=== PATIENT | female | born 2005 | race Caucasian/White ===

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

== ENCOUNTER → 2025-07-23 | Outpatient (CLI) | payer BC ==
[2025-07-23 11:51] LABS: Hematocrit 42.4 % (36.0-46.0); Hemoglobin 14.5 g/dL (12.2-16.2); Mean Corpuscular Hemoglobin 31.6 pg (28.0-32.0); Mean Corpuscular Volume 92.4 fL (80.0-100.0); Nucleated Red Blood Cells % 0.0 %
[2025-07-25 04:06] LABS: Chlamydia Trachomatis, NAA Negative (Negative); Neisseria gonorrhoeae, NAA Negative (Negative)
== END | disposition home or self-care (01) ==
LOC: LAB 11:19
PROVIDERS: ATTEND Obstetrics & Gynecology
DX: Z34.80 Encounter for supervision of other normal pregnancy, unspecified trimester (principal); Z72.51 High risk heterosexual behavior; Z3A.00 Weeks of gestation of pregnancy not specified
CPT/HCPCS: 36415; 83036; 85025; 86703; 86780; 86850; 86900; 86901; 87086; 87340

== ENCOUNTER 2025-07-30 18:22 | Inpatient (IN) | payer BC, MEDICAID ==
[~2025-07-30] VITALS: Ht 160 cm; Wt 73.0 kg
[2025-07-30] MEDS ORDERED: BUTORPHANOL TARTRATE 2 MG/1 ML VIAL IV PRN ×2 (18:45)
[2025-07-30] MEDS ORDERED: LIDOCAINE 2%HCL (LOCAL ANESTH.) INJ 20ML MDV IJ PRN (18:45)
[2025-07-30 19:13] LABS: Hematocrit 39.2 % (36.0-46.0); Hemoglobin 13.8 g/dL (12.2-16.2); Mean Corpuscular Hemoglobin 32.3 pg (28.0-32.0); Mean Corpuscular Volume 92.0 fL (80.0-100.0); Nucleated Red Blood Cells % 0.0 %
[2025-07-30 19:28] LABS: INR 0.93 (0.9-1.15); Partial Thromboplastin Time 29.7 SEC (24.5-34.5); Prothrombin Time 9.9 sec (9.3-11.8)
[2025-07-30] MEDS: NALOXONE HCL 0.4 MG/ML VIAL IV ONE (19:30)
[2025-07-30 19:37] LABS: Alanine Aminotransferase 21 U/L (7-40); Albumin 3.8 g/dL (3.2-4.8); Anion Gap 12 (5-15); BUN/Creatinine Ratio 15.7 (10.0-20.0); Bilirubin, Total 0.4 mg/dL (0.2-1.0); Calcium 9.3 mg/dL (8.7-10.4); Carbon Dioxide 21 mmol/L (20-31); Chloride 106 mmol/L (98-107); Glucose 76 mg/dL (74-106); Potassium 3.7 mmol/L (3.5-5.1); Sodium 139 mmol/L (136-145); Total Protein 6.8 g/dL (5.7-8.2)
[2025-07-30 19:38] LABS: Alkaline Phosphatase 177 U/L (46-116); Blood Urea Nitrogen 8 mg/dL (9-23)
[2025-07-30 19:38] LABS: Urine Protein, UAD Negative (Negative)
[2025-07-30 19:45] LABS: Amphetamine Screen, Urine Neg (NEGATIVE); Barbiturate Scree,Urine Neg (NEGATIVE); Benzodiazephine Screen, Urine Neg (NEGATIVE); Cannabinoid Screen, Urine Neg (NEGATIVE); Cocaine Screen, Urine Neg (NEGATIVE); Opiate Scree,Urine Neg (NEGATIVE); Phencyclidine Screen, Urine Neg (NEGATIVE)
[2025-07-30] MEDS: LACTATED RINGER'S 1,000 ML IV SCH (19:50)
[2025-07-30] MEDS: LACTATED RINGER'S 1,000 ML IV ONE (19:50)
[2025-07-30] MEDS: PENICILLIN G POT 5MIL/D5 50ML 50 ML IV ONE (19:50)
[2025-07-30] MEDS: WITCH HAZEL-GLYCERIN PAD TOP PRN (20:15)
[2025-07-30] MEDS: PHISODERM TOP SOLN 240ML BTL TOP PRN (20:15)
[2025-07-30] MEDS: DERMOPLAST 60ML BOTTLE TOP PRN (20:15)
[2025-07-30] MEDS: ROPIVACAINE HCL 100 ML ONE (20:17)
--- NOTE | 2025-07-30 20:23 | DVHHP2 ---
OB CC & HPI Date Date of Admission: Jul 30, 2025 Patient Identification: : 3 Para: 1 EDC: Aug 08, 2025 EGA: 38w5d Chief Complaints: Reason for admission: group B positive strep, rupture of membranes History of Present Complaints Carmen Werner is a 20 yo with IUP at 38w5d presenting for R/O SROM and UCs Patient states she felt water leaking at 1700 today, clear fluid. She is now rashida every 2 minutes and is wanting an epidural. Denies vaginal bleeding and states positive movement. GBS is positive. Denies headache, blurry vision, or epigastric pain. OB Hx: x1 Past Medical History Cardiac: No pertinent Hx Pulmonary: No pertinent Hx Central Nervous System: No pertinent Hx GI: No pertinent Hx Hemotology/Oncology: No pertinent Hx Hepatobiliary: No pertinent Hx Psychiatric: No pertinent Hx Musculoskeletal: No pertinent Hx Rheumotologic: No pertinent Hx Infectious Disease: No peritnent Hx ENT: No pertinent Hx Renal/: No pertinent Hx Endocrine: No pertinent Hx Dermatology: No pertinent Hx Past Surgical History: No pertinent Hx OB History OB History Care: Good Care Ultrasounds: Normal mid trimester US Obstetrical Complications: None Medical Complications: None Allergies: Coded Allergies: NO KNOWN ALLERGIES (Unverified , 03/10/24) Home Meds No Active Prescriptions or Reported Meds Current Medications Current Medications Medications (Trade) Dose Ordered Sig/Sudhir Route PRN Reason Start Time Stop Time Status Last Admin Lactated Ringer's 1,000 ml @ 125 mls/hr Q8H IV 07/30/25 18:45 07/30/25 19:50 Penicillin G Potassium 0198931 units/Dextrose 50 ml @ 100 mls/hr Q4H IV 07/30/25 23:45 Witch Paola (Tucks) 1 pad PRN PRN TOP PERINEAL AREA DISCOMFORT 07/30/25 18:45 Sodium Lauryl Sulfate (Phisoderm) 240 ml PRN PRN TOP PERINEAL AREA DISCOMFORT 07/30/25 18:45 Benzocaine (Dermoplast) 1 applic PRN PRN TOP PERINEAL AREA DISCOMFORT 07/30/25 18:45 Butorphanol Tartrate (Stadol Injection) 1 mg Q4HPRN PRN IV MODERATE PAIN (4-6 PAIN SCALE) 07/30/25 18:45 Butorphanol Tartrate (Stadol Injection) 2 mg Q4HPRN PRN IV SEVERE PAIN (7-10 PAIN SCALE) 07/30/25 18:45 Lidocaine HCl (Xylocaine) 20 ml ONCE PRN IJ PERINEAL AREA DISCOMFORT 07/30/25 18:45 Family & Social History Family/Social History Past Family/Social History: Fm Hx: denies Social Hx: -denies alcohol, tobacco, or other drug use -denies hx of STIs -feels safe at home RPR/VDRL: Negative GBS Status: Positive HBsAG: Negative Review of Systems Constitutional: No symptom reported Ears, Nose, & Throat: No symptom reported Eyes: No symptom reported Pulmonary/Respiratory: No symptom reported Cardiovascular: No symptom reported Gastrointestinal: No symptom reported Genitourinary: No symptom reported Musculoskeletal: No symptom reported Skin: No symptom reported Psychiatric: No symptom reported Endocrine: No symptom reported Hemotologic/Lymphatic: No symptom reported OB Admission Exam Physical Exam Vitals: VSS. See CPN HEENT: TMs Normal, Nasal Mucosa Normal, Eyes non-injected, Oropharynx Normal, PERRLA, Moist Membranes Heart: Rhythm Normal Lungs: Clear Abdomen: Gravid (EFW: 3500g by [place]) Extremities: Normal Reflexes: Normal Cervical Dilatation: 3cm Station: -2 Membranes: Ruptured Amniotic Fluid: Clear Heart Rate: 140's Accelerations: Accelerations Present Decelerations: No Decelerations Short Term Variability: Present Md Ophthalmologist Variability: Average (6-25) Contractions on Admission: < 5 Minutes Apart Date/Time Contractions Began: 07/30 @ 1700 Intensity: Moderate OB Plan Plan Admitting Diagnosis: SROM/Labor Plan: Expectant Management Other Plan: ASSESSMENT: -20 yo , IUP at 38w5d -SROM and in labor -Category 1 Tracing -GBS positive PLAN: -Plan of care and plan discussed with Patient -Process, Risks, benefits, of available management options discussed, including starting with expectant management, augmentation if indicated, Internal monitoring of UCs & FHT, AROM, amnioinfusion etc only when indicated. Patient agrees to starting with expectant management at this time, as she desires as natural a as possible; other interventions as indicated. Informed Consent obtained -Consent for possible blood transfusion obtained. -All questions answered. -Admit to Place for Labor -Routine L&D Admission orders -EFM per policy. OK to be intermittent per protocol, if FHR tracing is reactive and category 1 -Encourage ambulation and/exercises / frequent position change to facilitate labor & descent -Supportive care as needed. Patient can get epidural when desired -Start penicillin per protocol for GBS prophylaxis -Re-assess cervix in 4-6 hours, or sooner as indicated, to evaluate need for augmentation -Anticipate normal spontaneous vaginal delivery Visit Coding OBGYN Date of Service: Jul 30, 2025 Billing Provider: TIO CAGE CNM GAS CONTROLLER Common Visit Codes: [id number] OBS CARE (HIGH) GAS CONTROLLER Procedure Codes: 76527-37- NON-STRESS TEST TIO CAGE CNM Jul 30, 2025 20:23
[2025-07-30] MEDS: LACT. RINGERS/OXYTOCIN 20UNITS 500 ML IV ONE ×2 (21:26)
--- NOTE | 2025-07-30 21:31 | LDN2 ---
Labor and Delivery Note Date 07/30/25 Age 20 3 Para 1->2 EDC 08/08/2025 EGA 38w5d Diagnosis Vaginal Delivery: VTX Vacuum Assisted: No Placenta: Spontaneous Sex: Male Weight 8#0 Apgars 07/13 Nuchal Cord Transected: No Amniotic Fluid: Clear Anesthesia epidural Episiotomy: No Extension: No Repaired with N/A. perineum intact EBL 50mL in drape Labs Laboratory Tests 07/23/25 11:37: Hepatitis B Surface Antigen Negative, HIV (1&2) Antibody Negative Blood Bank 07/30/25 18:56: Blood Type A POSITIVE Comments/Significant Med Kyle At 210 this 20yo now delivered a viable male "Barry" by w/ APGARS 07/13. HIRO. Infant placed immediately skin to skin on pts chest. Cord clamped and cut by FOB after 3 minutes. Cord blood collected per protocol. Intact 3-vessel cord and intact placenta ([place]), delivered spontaneously Pitocin IV bolus started. Placenta shown to patient and sent to pathology. Patient had epidural and pain was well managed Cervix inspected and intact. Perineum intact. Rectal mucosa and sphincter intact. Fundus at U, firm, midline, and scant lochia. QBL 50ml. VSS. Count correct x2. Patient to care and baby to couplet care, both stable. Visit Coding OBGYN Date of Service: Jul 30, 2025 Billing Provider: TIO CAGE CNM ALUMINUM BOAT ASSEMBLY SUPERVISOR Common Visit Codes: [id number] INP/OBS CARE(HIGH) ALUMINUM BOAT ASSEMBLY SUPERVISOR Procedure Codes: 26301-[id number] DELIVERY ONLY TIO CAGE CNM Jul 30, 2025 21:31
[2025-07-30] MEDS ORDERED: IBUPROFEN 600 MG TAB PO PRN (21:45)
[2025-07-30] MEDS ORDERED: ONDANSETRON ODT 4 MG TAB PO PRN (21:45)
[2025-07-30] MEDS: DOCUSATE SOD 100 MG CAP PO SCH (22:00)
[2025-07-30] MEDS ORDERED: PENICILLIN G POTASSIUM 2,500,000 UNITS in D5W 5% 50 ML IV SCH (23:45)
[2025-07-31] VITALS (7 sets, daily range): BP systolic 112–122; BP diastolic 54–64; PULSE 96–109; RESP 17–18; TEMP 97.7–98.9; O2SAT 95–99
[2025-07-31] MEDS: ACETAMINOPHEN 325 MG TAB PO PRN (06:36)
--- NOTE | 2025-07-31 06:39 | DVHPN2 ---
Progress Note Date Seen: Jul 31, 2025 Subjective Carmen feels much better than she expected to. She has been walking independently around room and is feeling like she is ready to go home SUBJECTIVE -Lochia minimal -Tolerating regular diet well. -Pain relieved with oral medication PRN -Ambulating and voiding well w/o feeling lightheaded or dizzy. -Passing flatus but no BM yet -Breast feeding. -Desires and requests to be discharged home today (07/31) vital signs Vital Sign Date Time Temp Pulse Resp B/P (MAP) Pulse Ox O2 Delivery O2 Flow Rate FiO2 07/31/25 03:21 98.9 109 17 112/64 (80) 97 98.9 07/30/25 23:11 Room Air Total Intake and Output 07/30/25 07/30/25 07/31/25 15:00 23:00 07:00 Output Total 1150 ml Balance -1150 ml medications Current Medications Medications Dose Ordered Sig/Sudhir Route Start Time Stop Time Status Last Admin Dose Admin Penicillin G Potassium 3732773 units/Dextrose 50 ml @ 100 mls/hr Q4H IV 07/30/25 23:45 Cancel Witch Paola 1 pad PRN PRN TOP 07/30/25 18:45 07/30/25 20:15 1 PAD Sodium Lauryl Sulfate 240 ml PRN PRN TOP 07/30/25 18:45 07/30/25 20:15 240 ML Benzocaine 1 applic PRN PRN TOP 07/30/25 18:45 07/30/25 20:15 1 APPLIC Butorphanol Tartrate 1 mg Q4HPRN PRN IV 07/30/25 18:45 Cancel Butorphanol Tartrate 2 mg Q4HPRN PRN IV 07/30/25 18:45 Cancel Lidocaine HCl 20 ml ONCE PRN IJ 07/30/25 18:45 Cancel Ibuprofen 600 mg Q6HP PRN PO 07/30/25 21:45 Acetaminophen 650 mg Q4HP PRN PO 07/30/25 21:45 Ondansetron HCl 4 mg Q4HPRN PRN PO 07/30/25 21:45 Docusate Sodium 200 mg HS PO 07/30/25 22:00 laboratory and microbiology Laboratory Tests 07/30/25 18:56 Test 07/30/25 18:56 Range/Units Serum Glucose 76 74-106 mg/dL Objective OBJECTIVE -A&O x4. No apparent distress. Affect appropriate -Afebrile, VSS -Chest: heart and lung sounds normal. -Breasts: Nipples intact w/o cracks or soreness -Abdomen: normal BS, soft, non-tender, no rebound or guarding, fundus firm @ U- 1, lochia minimal -Perineum: no edema, or erythema -Extremities: no edema or tenderness Problems(with codes): (1) (normal spontaneous vaginal delivery) (2) Intact perineum Assessment/Plan ASSESSMENT -20 yo now ppd #1 s/p doing well. -Blood Type: A+ -Breast feeding -Rubella Immune PLAN -Continue pain management with oral medications as previously ordered -Increase fluid intake and fiber in diet to promote regular bowel movements, Laxative PRN. Discussed taking stool softeners regularly for the first 2 weeks PP in order to prevent constipation and maintain ease of bowel movements. -Encouraged patient to continue taking vitamin and iron -Educated patient on self care and warning signs of PPH, PPD, and pre-eclampsia. Answered all pt questions and concerns -Continue routine care. Discussed uncertainty of baby being discharged in the night hours. If baby is given the OK to discharge, patient is OK to d/c home tonight. Otherwise, discharge tomorrow morning Plan discussed with: Patient, Spouse Visit Coding OBGYN Date of Service: Jul 31, 2025 Billing Provider: TIO CAGE CNM GLOVE PRINTER Common Visit Codes: [id number] INP/OBS CARE(HIGH) TIO CAGE CNM Jul 31, 2025 06:39
[2025-07-31] MEDS ORDERED: DOCU-94 PO (06:40)
[2025-07-31] MEDS ORDERED: IBU600T PO (06:40)
[2025-07-31] MEDS ORDERED: PREN-96 PO (06:40)
--- NOTE | 2025-07-31 07:01 | DVHDS2 ---
Obstetrics Discharge Summary Obstetrics Discharge Summary Date of Admission: Jul 30, 2025 Date of Discharge: Jul 31, 2025 Reason For Admission: Onset of Labor Intrapartum Procedures: Spontaneous vaginal deliv Discharge Diagnosis: Term -Delivered Discharge Information: Activity (Unrestricted. Advance as tolerated. Balance activities with rest periods. No heavy lifting, pushing or straining. Pelvic rest x 6 weeks), Diet (Routine), Medications (Ibuprofen 600mg every 6 hours as needed for pain. Colace 100mg twice a day as needed to keep bowel movements soft and prevent constipation. Continue Vitamin and iron), Instructions (Routine), Discharge to (Home), Accompanied by (partner), Discarge date (07/31/25) Discharge Care Plan Instructions - self care instructions given - emergency signs and symptoms including but not limited to pre-eclampsia precautions and signs of infection, PPH & of PPD reviewed with patient. -Follow up with OB Provider in 2 weeks and again at 6 weeks Visit Coding OBGYN Date of Service: Jul 31, 2025 Billing Provider: TIO CAGE CNM LAUNDRY HOUSEKEEPING AIDE Common Visit Codes: [id number]-[id number]/OBS DISCH DAY >30MIN TIO CAGE CNM Jul 31, 2025 07:01
--- NOTE | 2025-08-01 02:13 | DVHPN2 ---
Progress Note Date Seen: Aug 01, 2025 Subjective S: Lochia minimal Tolerating regular diet well. Ambulating and voiding well w/o feeling lightheaded or dizzy. Passing flatus but no BM yet. Breast feeding. Contraceptive plan: Nexplanon Desires and requests to be discharged home today vital signs Vital Sign Date Time Temp Pulse Resp B/P (MAP) Pulse Ox O2 Delivery O2 Flow Rate FiO2 07/31/25 22:59 98.2 96 18 118/61 (80) 99 98.2 07/31/25 18:30 Room Air Total Intake and Output 07/31/25 07/31/25 08/01/25 15:00 23:00 07:00 Output Total 325 ml Balance -325 ml medications Current Medications Medications Dose Ordered Sig/Sudhir Route Start Time Stop Time Status Last Admin Dose Admin Penicillin G Potassium 5876008 units/Dextrose 50 ml @ 100 mls/hr Q4H IV 07/30/25 23:45 Cancel Witch Paola 1 pad PRN PRN TOP 07/30/25 18:45 07/30/25 20:15 1 PAD Sodium Lauryl Sulfate 240 ml PRN PRN TOP 07/30/25 18:45 07/30/25 20:15 240 ML Benzocaine 1 applic PRN PRN TOP 07/30/25 18:45 07/30/25 20:15 1 APPLIC Butorphanol Tartrate 1 mg Q4HPRN PRN IV 07/30/25 18:45 Cancel Butorphanol Tartrate 2 mg Q4HPRN PRN IV 07/30/25 18:45 Cancel Lidocaine HCl 20 ml ONCE PRN IJ 07/30/25 18:45 Cancel Ibuprofen 600 mg Q6HP PRN PO 07/30/25 21:45 Acetaminophen 650 mg Q4HP PRN PO 07/30/25 21:45 07/31/25 21:57 650 MG Ondansetron HCl 4 mg Q4HPRN PRN PO 07/30/25 21:45 Docusate Sodium 200 mg HS PO 07/30/25 22:00 07/31/25 21:58 200 MG laboratory and microbiology Laboratory Tests 07/30/25 18:56 Test 07/30/25 18:56 Range/Units Serum Glucose 76 74-106 mg/dL Objective A&O x3 NAD. Afebrile, VSS Chest: heart and lung sounds normal. Breasts: Nipples intact w/o cracks or soreness Abdomen: normal BS, soft, non-tender, no rebound or guarding, fundus firm @ U- 1, lochia minimal Perineum:- no edema, or erythema, laceration site with sutures intact, edges in good approximation. Extremities: no edema or tenderness Lochia - minimal Assessment/Plan Ms Werner, a 20yo, now ppd#2 s/p doing well. Blood Type: A Rh: Positive Breast feeding Rubella Immune Pain control with oral medications Bowel regimen: Increase fluid intake and fiber in diet, Laxative PRN PP BCM Plan:Nexplanon Discharge plan: May discharge home later today if condition remains stable Plan discussed with: Patient, Spouse Visit Coding OBGYN Date of Service: Aug 01, 2025 Billing Provider: NATALIYA WARNER CNM QUARRY EQUIPMENT OPERATOR Common Visit Codes: [id number] INP/OBS CARE(HIGH) NATALIYA WARNER CNM Aug 01, 2025 02:13
--- NOTE | 2025-08-01 02:17 | DVHDS2 ---
Discharge Summary Date of Admission Jul 30, 2025 at 18:40 Date of Discharge: Jul 31, 2025 Admitting Diagnosis <> IUP @ 38w <> SROM <> Labor Labs/Diagnostic Data: Laboratory Results Test 07/30/25 19:50 07/30/25 18:56 Urine Color Light-yellow (Yellow) Urine Clarity Clear (Clear) Urine pH 6.5 (5.0-9.0) Urine Specific [place] 1.010 (1.001-1.035) Urine Protein Negative (Negative) Urine Ketones Trace (Negative) Urine Blood Negative /uL (Negative) Urine Nitrite Negative (Negative) Urine Bilirubin Negative (Negative) Urine Urobilinogen Normal mg/dL (Negative) Urine Leukocyte Esterase Negative /uL (Negative) Urine RBC 4 /hpf (0 - 4) Urine Microscopic WBC 2 /HPF (0-5) Urine Squamous Epithelial Cells Few /hpf (<5) Urine Bacteria None seen /hpf (None Seen) Urine Glucose Normal mg/dL (Normal) Urine Opiates Screen Neg (NEGATIVE) Urine Fentanyl Screen Neg (NEGATIVE) Urine Barbiturates Screen Neg (NEGATIVE) Urine Phencyclidine Screen Neg (NEGATIVE) Urine Amphetamines Screen Neg (NEGATIVE) Urine Benzodiazepines Screen Neg (NEGATIVE) Urine Cocaine Screen Neg (NEGATIVE) Urine Cannabinoids Screen Neg (NEGATIVE) White Blood Count 10.7 10^3/uL (4.4-10.8) Red Blood Count 4.26 10^6/uL (4.0-5.20) Hemoglobin 13.8 g/dL (12.2-16.2) Hematocrit 39.2 % (36.0-46.0) Mean Corpuscular Volume 92.0 fL (80.0-100.0) Mean Corpuscular Hemoglobin 32.3 pg (28.0-32.0) Mean Corpuscular Hemoglobin Concent 35.1 g/dL (32.0-36.0) Red Cell Distribution Width 13.1 % (11.8-14.3) Platelet Count 203 10^3/uL (140-450) Mean Platelet Volume 9.3 fL (6.9-10.8) Neutrophils (%) (Auto) 69.6 % (37.0-80.0) Lymphocytes (%) (Auto) 21.7 % (10.0-50.0) Monocytes (%) (Auto) 7.7 % (0.0-12.0) Eosinophils (%) (Auto) 0.6 % (0.0-7.0) Basophils (%) (Auto) 0.4 % (0.0-2.0) Neutrophils # (Auto) 7.5 10 ^3/uL (1.6-8.6) Lymphocytes # (Auto) 2.3 10 ^3/uL (0.4-5.4) Monocytes # (Auto) 0.8 10 ^3/uL (0-1.3) Eosinophils # (Auto) 0.1 10 ^3/uL (0-0.8) Basophils # (Auto) 0 10 ^3/uL (0-0.2) Nucleated Red Blood Cells 0.0 % Prothrombin Time 9.9 sec (9.3-11.8) Prothrombin Time INR 0.93 (0.9-1.15) Activated Partial Thromboplast Time 29.7 SEC (24.5-34.5) Sodium Level 139 mmol/L (136-145) Potassium Level 3.7 mmol/L (3.5-5.1) Chloride Level 106 mmol/L (98-107) Carbon Dioxide Level 21 mmol/L (20-31) Anion Gap 12 (5-15) Blood Urea Nitrogen 8 mg/dL (9-23) Creatinine 0.51 mg/dL (0.550-1.02) Glomerular Filtration Rate Calc 137 mL/min (>90) BUN/Creatinine Ratio 15.7 (10.0-20.0) Serum Glucose 76 mg/dL (74-106) Calcium Level 9.3 mg/dL (8.7-10.4) Total Bilirubin 0.4 mg/dL (0.2-1.0) Aspartate Amino Transferase (AST) 25 U/L (13-40) Alanine Aminotransferase (ALT) 21 U/L (7-40) Alkaline Phosphatase 177 U/L (46-116) Total Protein 6.8 g/dL (5.7-8.2) Albumin 3.8 g/dL (3.2-4.8) Treponema pallidum Antibody Non-reactive (Negative) Hepatitis C Antibody Negative (Negative) Other Laboratory Tests 07/30/25 18:56 Brief Hx & Hospital Course: Ms Werner was admitted on 07/30/2025 at 38w 1d EGA for SROM & labor. Patient then had an uneventful labor. She progressed to 2nd stage of labor and had a over an intact perineum. ( See Delivery Note for details) Normal course; meeting milestones w/o any problem or complications. Operations or Procedures Condition at Discharge: Good Final Diagnosis/Problems List SAME Term - Delivered Discharge Disposition: Home Discharge Instruct/Medications Diet: Regular Diet comment: Routine regular diet rich in fiber, protein, iron and vitamin C with adequate fluid intake Activity: No Restrictions, As Tolerated Activity comment: Unrestricted. Advance as tolerated. Balance activities with rest periods No heavy lifting, pushing or straining. Pelvic rest x 6weeks Follow Up/Referral: Follow up with OB Provider in 1 week Medications: Ibuprofen, Vitamin Discharge Statement: self care instructions given. emergency signs and symptoms including but not limited to pre-eclampsia precautions and signs of infection, PPH & of PPD reviewed with patient. "Patient was advised to return to the ER or call 911 if any headaches, dizziness, shortness of breath, chest pain, abdominal pain, bleeding, fevers, or worsening of medical condition. Patient was counseled about treatment plan, medications, possible side effects, patientverbalized understanding. All questions were answered to the best of my ability. This discharge took greater then 30 minutes in planning, reviewing documentation, counseling the patient, and discussing with other team members." ASSESSMENT ASSESSMENT Hospital Course Ms Werner was admitted on 07/30/2025 at 38w 1d EGA for SROM & labor. Patient then had an uneventful labor. She progressed to 2nd stage of labor and had a over an intact perineum. ( See Delivery Note for details) Normal course; meeting milestones w/o any problem or complications. Assessment SAME Term - Delivered Visit Coding OBGYN Date of Service: Aug 01, 2025 Billing Provider: NATALIYA WARNER CNM MACHINE COMPOSITOR Common Visit Codes: [id number] DISCH DAY <30MIN NATALIYA WARNER CNM Aug 01, 2025 02:17
[2025-08-01 03:30] VITALS: BP 113/66; PULSE 96; RESP 17; TEMP 98.5; O2SAT 96
[2025-08-01 07:00] VITALS: BP 122/56; PULSE 98; RESP 18; TEMP 98.4; O2SAT 95; O2SAT 96
== END 2025-08-01 12:20 | disposition home or self-care (01) | DRG 807 ==
LOC: LDRP 18:22 → OBSVTOIN 18:40 → LDRP 18:44
PROVIDERS: ADMIT Obstetrics & Gynecology; ATTEND Obstetrics & Gynecology
PROC: 10E0XZZ Delivery of Products of Conception, External Approach (ICD-10-PCS; principal; 2025-07-30)
PROC: 3E0R3BZ Introduction of Anesthetic Agent into Spinal Canal, Percutaneous Approach (ICD-10-PCS; 2025-07-30)
PROC: 00HU33Z Insertion of Infusion Device into Spinal Canal, Percutaneous Approach (ICD-10-PCS; 2025-07-30)
DX: O99.824 Streptococcus B carrier state complicating childbirth (principal); Z37.0 Single live birth; Z3A.38 38 weeks gestation of pregnancy
CPT/HCPCS: 36415; 59025; 59409; 62282; 80053; 80307; 81001; 85025; 85610; 85730; 86780; 86803; 86850; 86900; 86901; 94760; 96360; 96361; 96365; 96366; G0378; J2540; J2590; J7060